=== PATIENT | female | born 1970 | race Caucasian/White ===

== ENCOUNTER 2022-05-16 19:23 | Emergency (ER) | payer OTHER, SELFPAY ==
--- NOTE | 2022-05-16 19:27 | ED.FEMALEGU ---
HPI - Female Genitourinary General Chief complaint: Urogenital-Female Stated complaint: Not in Vagina Time Seen by Provider: 05/16/22 19:24 Source: patient Mode of arrival: ambulatory Limitations: no limitations History of Present Illness HPI Narrative: Ms. Doshi is a 52-year-old female patient presenting to the clinic today with complaints of a knot in her vaginal area x2 days She reports that it is painful to walk, sit, lay down, or stand. Reports the pain is to the lower right side of her vagina and radiates into her perineum. She denies any drainage or discharge. She denies any fever or chills. she denies any history of having any boils or abscesses in the past Related Data Allergies Allergy/AdvReac Type Severity Reaction Status Date / Time No Known Allergies Allergy Verified 05/16/22 19:26 Review of Systems Review of Systems: Pertinent positives per HPI. Patient denies any fever, chills, rash, headache, visual changes, dizziness, cough, runny nose, sore throat, shortness of breath, chest pain, palpitations, nausea, vomiting, diarrhea, constipation, abdominal pain, or any urinary issues. PMFSH Comments At the time of my signature, I reviewed and agree with the nursing past medical, surgical, social, and family history. There is no relevant family history pertinent to the patient complaint. Exam Narrative: General: Well-developed, well nourished, in no apparent distress Head: Normocephalic, atraumatic. Cardio: Regular rate and rhythm, s1 and s2 normal, no murmur appreciated. Resp: Clear to auscultation bilaterally, no rhonchi, rales, wheezing or rubs. Abdomen: Soft, pliable, bowel sounds present in all quadrants, non-tender to palpation, no CVAT tenderness. : External pelvic exam performed with (Yaritza LUTZ) at bedside. Verbal consent obtained from patient. Normal external female genitalia without lesions, ping-pong ball sized mass palpable to the right lower labia majora and surrounding tissue, tenderness to palpation, no erythema or redness visible, mild fluctuance felt Urinary meatus: patent without discharge, Vagina: No lesions or discharge, ping pong ball sized mass felt to the right lower portion of the outer vaginal wall, mild fluctuance felt Incision and drainage performed with yellow-brown discharge evacuated from the abscess and culture was obtained Course Course Emergency Course: Portions of this record may have been created with voice recognition software. Level of Care: Express Care Visit Vital Signs Vital signs: Vital Signs Temperature 36.5 C 05/16/22 19:33 Pulse Rate 84 05/16/22 19:33 Respiratory Rate 16 05/16/22 19:33 Blood Pressure 110/67 05/16/22 19:33 Pulse Oximetry 100 05/16/22 19:33 Oxygen Delivery Room Air 05/16/22 19:33 Temperature 36.5 C 05/16/22 19:33 Pulse Rate 84 05/16/22 19:33 Respiratory Rate 16 05/16/22 19:33 Blood Pressure 110/67 05/16/22 19:33 Pulse Oximetry 100 05/16/22 19:33 Oxygen Delivery Room Air 05/16/22 19:33 Vital signs reviewed Procedures Abscess I/D bartholin's gland: Date of Incision: 05/16/22 Side (if applicable): right Local Anesthetic: lidocaine 1% Amount of anesthesia used (mL): 8 Technique: incised with #11 blade Amount of fluid expressed (mL): 5 Irrigation: No Packing used?: none I&D Results: Pus Abcess I&D Additional Comments: Verbal consent obtained for incision and drainage. Risk and benefits explained and patient voiced understanding. Area was cleansed with betadine. Area was prepped and draped using sterile technique. 25 gauge needle was then used to instill (8) ml of lidocaine into the edges. Patient tolerated well and anesthesia was appropriate. An 11 blade scalpel was then used to make a 0.5cm incision over the abscess. Yellowish-brown exudate expressed from cavity. Wound culture obtained and sent to lab. Patient tolerated procedure well
[2022-05-16 19:33] VITALS: BP 110/67; PULSE 84; RESP 16; TEMP 36.5; O2SAT 100
[2022-05-16] MEDS: LIDOCAINE HCL 1% LOCAL INJ 10 ML VIAL 5 ML INFILTRATE (19:42)
== END 2022-05-16 20:10 | disposition home or self-care (01) ==
PROVIDERS: Emergency Provider Nurse Practitioner Family
DX: N75.1 Abscess of Bartholin's gland (principal)
CPT/HCPCS: 56420; 87070; 87075; 87147; 87181; 87186; 87205; 99213; G0463